=== PATIENT | female | born 1955 | race Caucasian/White ===

== ENCOUNTER 2024-01-01 14:21 | Outpatient (CLI) | payer MEDICARE | END 2024-01-01 14:22 | disposition home or self-care (01) | LOC: BICMAMMO 14:21 | PROVIDERS: ATTEND Internal Medicine Rheumatology | DX: M81.0 Age-related osteoporosis without current pathological fracture (principal); M85.851 Other specified disorders of bone density and structure, right thigh; M85.852 Other specified disorders of bone density and structure, left thigh | CPT/HCPCS: 77080 ==